=== PATIENT | female | born 1935 | race Caucasian/White ===

== ENCOUNTER → 2022-06-27 12:40 | Outpatient (CLI) | payer MEDICARE, SELFPAY ==
--- NOTE | ~2022-06-27 | US_ITS ---
Renal-Bladder ultrasound Clinical History: Chronic kidney disease Technique: Real-time sonographic imaging of the kidneys and urinary bladder was performed. Findings: The right kidney measures 8.5 cm in length and the left kidney measures 8.9 cm. There is no hydronephrosis or renal calculus identified. Renal cortical echogenicity is within normal limits. No renal mass lesion is identified. The urinary bladder is moderately distended at the time of this exam. No intraluminal echoes are iden tified. No abnormal wall thickening is seen. Impression: Unremarkable ultrasound of the kidneys and urinary bladder. Reviewed, dictated and finalized at location M. CONTROL TECHNICIAN Impression: Unremarkable ultrasound of the kidneys and urinary bladder.
== END ==
PROVIDERS: PCP Physician Assistant Medical; Visit Provider Internal Medicine Nephrology
DX: N18.32 Chronic kidney disease, stage 3b (principal)
CPT/HCPCS: 76775

== ENCOUNTER 2022-11-24 12:35 | Emergency (ER) | payer MEDICARE, SELFPAY ==
[2022-11-24] VITALS (23 sets, daily range): BP systolic 108–150; BP diastolic 51–66; PULSE 62–74; RESP 15–25; TEMP 36.2; O2SAT 95–100
[2022-11-24] MEDS: SODIUM CHLORIDE 0.9% IV 500 ML 999 ML IV CONT (13:48)
[2022-11-24 13:51] LABS: Basophils Percent Auto 0.6 % (0.2-1.2); Eosinophils Absolute Auto 0.2 K/mm3 (0-0.3); Eosinophils Percent Auto 3.5 % (0-4.4); Hematocrit 33.6 % (37.0-47.0); Hemoglobin 10.9 g/dL (12.0-15.0); Immature Granulocyte Absolute 0.01 K/mm3 (0.00-0.031); Immature Granulocyte Percent A 0.2 % (0-0.5); Lymphocytes Absolute Auto 1.27 K/mm3 (0.9-3.2); Mean Corpuscular HGB Conc 32.4 g/dl (32-36); Mean Corpuscular Hemoglobin 29.5 pg (26-34); Mean Corpuscular Volume 91.1 fl (80-100); Mean Platelet Volume 10.3 fl (7.4-10.4); Monocytes Absolute Auto 0.6 K/mm3 (0.1-0.6); Monocytes Percent Auto 12.5 % (2.6-8.5); Neutrophils Absolute Auto 2.8 K/mm3 (1.3-6.7); Neutrophils Percent Auto 57.2 % (45.5-73.1); Platelet Count Result 253 k/mm3 (150-375); Red Blood Count 3.69 M/mm3 (4.2-5.4); White Blood Count 4.9 K/mm3 (4.5-10.0)
[2022-11-24 14:04] LABS: Alanine Aminotransferase 15 U/L (6-35); Albumin Level 3.6 g/dL (3.5-5.1); Alkaline Phosphatase 59 U/L (38-126); Anion Gap 7 mmol/L (8-16); Aspartate Amino Transferase 24 U/L (14-36); Bilirubin,Total 0.4 mg/dL (0.2-1.3); Blood Urea Nitrogen 36 mg/dL (7-17); Calcium 8.7 mg/dL (8.4-10.2); Carbon Dioxide 29 mmol/L (22-30); Chloride 99 mmol/L (98-107); Estimated CRCL calculation 17 ml/min; Estimated Glomerular Filt Rate 28; Glucose 102 mg/dL (65-110); Potassium 3.1 mmol/L (3.4-5.0); Sodium 135 mmol/L (137-145)
--- NOTE | 2022-11-24 14:27 | ED.GENADULT ---
HPI - General Adult General Chief complaint: Urogenital-Female Stated complaint: UTI X2 weeks- continues to be tired Time Seen by Provider: 11/24/22 13:06 History of Present Illness HPI narrative: This is an 87-year-old female with past history of CKD (baseline creatinine 1.3-1.4) dementia and depression, recently treated for urinary tract infection is brought in by family with concern for dehydration. The patient's daughters, who are at bedside note the patient has been generally weak over the past 2 weeks without focal findings. They states she was initially placed on Macrobid and changed to cefdinir. The patient states she has felt somewhat bit fatigued but she has no other complaints at this time. She politely persists that she be allowed to go home. Related Data Home Medications Medication Instructions Recorded Confirmed cholecalciferol (vitamin D3) 50 50 mcg PO DAILY 07/25/22 09/20/22 mcg (2,000 unit) capsule Allergies Allergy/AdvReac Type Severity Reaction Status Date / Time No Known Allergies Allergy Mild Verified 11/24/22 12:36 Review of Systems Review of Systems: CONSTITUTIONAL: Denies fever, chills, or sweats. Mild generalized fatigue CARDIOVASCULAR: Denies chest pain, palpitations, or edema. RESPIRATORY: Denies cough or dyspnea. GASTROINTESTINAL: Denies abdominal pain, nausea, vomiting, or diarrhea. GENITOURINARY: Denies dysuria or hematuria. SKIN: Denies rash or itching. MUSCULOSKELETAL: Denies back pain, joint pain, or myalgia. NEUROLOGIC: Denies headache, numbness, dizziness, or weakness. PSYCHIATRIC: Denies anxiety or depression. [facility] Past Medical History Medical History Anxiety BMI 20.0-20.9, adult Dementia Left wrist fracture Rectal polyp UTI (urinary tract infection) Surgical History Surgical History H/O: hysterectomy History of cholecystectomy Family History Family History Mother Carcinoma of colon Father Family history of coronary artery disease Family history of congestive heart failure Sibling Family history of coronary artery disease AD (Alzheimer's disease) Social History Social History Smoking status: Never smoker Second hand tobacco smoke exposure: No Alcohol intake: never Substance use: never Substance use type: does not use Lack of Transportation: No Lack of Food: Never True Current Housing: I Have Housing Concerned About Future Housing: No Difficulty Paying Gas/Electric Bills: No Difficulty Paying for Meds: No Currently Unemployed: No Education: High School Diploma/GED Difficulty w/ Childcare or Family Care: No Living arrangements: with family Occupation/Education: retired 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 HEAD: Normocephalic, atraumatic. EYES: PERRLA and EOMI. ENT: Nares clear, no rhinorrhea or epistaxis. Mucous membranes moist. Oropharynx without tonsillar hypertrophy exudate or other lesions. CHEST: Clear to auscultation. No respiratory distress. No wheezes rales or rhonchi HEART: Regular rate and rhythm. No murmur heard. Normal peripheral pulses. ABDOMEN: Soft, nontender, nondistended, normal active bowel sounds. EXTREMITIES: Normal range of motion. No edema. SKIN: Warm, dry, no rash. NEURO: No focal deficits. Alert and oriented x3. Strength 5/5 in all extremities, sensation intact bilaterally, cranial nerves II through XII intact, no noted intact PSYCH: Normal mood and affect. Course Course Emergency [facility]: [facility]
[2022-11-24 15:05] LABS: Appearance Urine Turbid (Clear); Bacteria Urine Rare /hpf; Bilirubin Urine Negative (Negative); Calcium Oxalate Crystals Urine Present /hpf; Color Urine Yellow (Yellow); Glucose Urine UA Negative (Negative); Hyaline Casts Urine Present /lpf; Ketones Urine Negative (Negative); Leukocyte Esterase Ur 3+ LEU/UL (Negative); Nitrate Urine Negative (Negative); Protein Urine 2+ mg/dL (Negative); Specific Grav Ur 1.012 (1.001-1.035); Squamous Epithelial Cell Urine Few /hpf (Few); Transitional Epi Cells Urine Present /hpf (None Seen); Urobilinogen Urine 0.2 mg/dL (<2.0); WBC Clumps Urine Present /HPF; WBC Urine >100 /hpf
[2022-11-24 15:33] LABS: Add Urine Microscopic? YES
[2022-11-24] MEDS: POTASSIUM CHLORIDE 20 MEQ PACKET (FOR LIQUID) 40 MEQ PO (15:35)
[2022-11-24] MEDS: LACTATED RINGERS 1,000 ML 999 ML IV CONT (15:35)
== END 2022-11-24 16:45 | disposition home or self-care (01) ==
PROVIDERS: Emergency Provider Preventive Medicine Aerospace Medicine; PCP Family Medicine
DX: N39.0 Urinary tract infection, site not specified (principal); E86.0 Dehydration; N18.9 Chronic kidney disease, unspecified; F03.90 Unspecified dementia, unspecified severity, without behavioral disturbance, psychotic disturbance, mood disturbance, and anxiety; Z90.710 Acquired absence of both cervix and uterus; Z87.19 Personal history of other diseases of the digestive system; Z90.49 Acquired absence of other specified parts of digestive tract; F41.9 Anxiety disorder, unspecified
CPT/HCPCS: 36415; 80053; 81001; 85025; 87086; 96360; 96361; 99283; A9270; J7040; J7120

== ENCOUNTER 2024-02-23 11:19 | Emergency (ER) | payer MEDICARE, SELFPAY ==
--- NOTE | ~2024-02-23 | CT_ITS ---
EXAMINATION: CT facial & cervical spine wo DATE: 02/23/2024 12:07 INDICATION: Status post fall. Facial injury. TECHNIQUE: Computed tomography (CT) of the maxillofacial region and cervical spine was performed with out intravenous contrast. The dose-length product (DLP) was 190.24 mGy-cm. Automated exposure control and iterative reconstruction technique were employed. COMPARISON: None FINDINGS: MAXILLOFACIAL CT: There is complete opacification of the right maxillary sinus. No definitive fracture is seen, althoug h there is gas in the air-fluid level of the right maxillary sinus. Leftward nasal septal deviation. There is mild osteoarthritis of the temporomandibular joints. Possible old nasal fractures. Zygomatic arch is intact. No definite orbital blowout fracture. There is a fracture along the inferior margin of the right maxillary antrum that extends into the mandible. Pterygoid plates intact.. CERVICAL SPINE CT: There is severe cervical spondylosis with degenerative anterolisthesis at C2-3, C3-4, C4-5 and C7-T1. No evidence for perched facet. There is moderate multilevel uncinate and facet hypertrophy. Odontoid process is normal. Craniovertebral junction is normal. No evidence for perched facet. IMPRESSION: 1. Nondisplaced fracture inferior margin of the right maxillary antrum extending into the mandible. N ear complete opacification of the right maxillary sinus, likely hemorrhage. 2: No acute fracture of the cervical spine. Reviewed, dictated and finalized at location B. IMPRESSION: 1. Nondisplaced fracture inferior margin of the right maxillary antrum extendin g into the mandible. Near complete opacification of the right maxillary sinus, likely hemorrhage. 2: No acute fracture of the cervical spine.
--- NOTE | ~2024-02-23 | CT_ITS ---
EXAMINATION: CT brain wo con DATE: 02/23/2024 12:07 INDICATION: Status post fall. Head trauma. TECHNIQUE: Computed tomography (CT) of the head was performed without intravenous contrast. The dose- length product was 605.33 mGy-cm. Automated exposure control and iterative reconstruction technique w ere employed. COMPARISON: CT dated 03/21/2011 FINDINGS: Generalized atrophy. There are scattered mild periventricular and subcortical white matter changes, most likely related to small vessel ischemic disease (microangiopathy). Paranasal sinuses an d mastoids are pneumatized. No depressed skull fractures. No acute infarction, hemorrhage, mass or ma ss effect. IMPRESSION: 1. No acute intracranial abnormality. Reviewed, dictated and finalized at location B.
[2024-02-23 11:20] VITALS: TEMP 36.3
[2024-02-23 11:24] VITALS: BP 179/78; PULSE 85; RESP 16; O2SAT 98
--- NOTE | 2024-02-23 12:21 | ED.FALL ---
HPI - Fall General Chief Complaint: Fall Stated Complaint: fall-facial trauma Time Seen by Provider: 02/23/24 12:06 History of Present Illness HPI Narrative: 88-year-old female presenting to the emergency department for evaluation after having a ground level fall. Patient tripped over a curb causing her to fall forward and strike her face. Patient does have a laceration to her lower lip that is through and through. Patient does have multiple facial contusions Related Data Home Medications Medication Instructions Recorded Confirmed latanoprost 0.005 % eye drops 1 drp EACH EYE DAILY 04/04/23 10/03/23 Allergies Allergy/AdvReac Type Severity Reaction Status Date / Time No Known Allergies Allergy Mild Verified 10/03/23 10:00 Review of Systems Review of Systems: All systems reviewed & are unremarkable except as noted in HPI and below PMFSH Past Medical History Medical History Anxiety BMI 20.0-20.9, adult Dementia Left wrist fracture Psychosis Rectal polyp UTI (urinary tract infection) Surgical History Surgical History H/O: hysterectomy History of cholecystectomy Family History Family History Mother Carcinoma of colon Father Family history of coronary artery disease Family history of congestive heart failure Sibling Family history of coronary artery disease AD (Alzheimer's disease) Sibling Memory changes A-fib Social History Social History Smoking status: Never smoker Second hand tobacco smoke exposure: No Alcohol intake: never Substance use: never Substance use type: does not use Lack of Transportation: No Lack of Food: Never True Current Housing: I Have Housing Concerned About Future Housing: No Difficulty Paying Gas/Electric Bills: No Difficulty Paying for Meds: No Currently Unemployed: No Education: High School Diploma/GED Difficulty w/ Childcare or Family Care: No Living arrangements: assisted living 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 HEAD: normocephalic, atraumatic. EYES: PERRLA/EOMI, conjunctivae clear. NOSE: Normal no drainage EARS:TMS clear with good light reflex. THROAT: Pharynx clear, no exudate. NECK: Supple. No adenopathy, no masses. RESPIRATORY: Airway patent, respirations nonlabored. Clear to auscultation bilaterally, no rales, rhonchi, wheezing. CARDIOVASCULAR: Regular rate and rhythm without murmurs rubs or gallops. ABDOMINAL: Soft, nontender, nondistended, normal bowel sounds MUSCULOSKELETAL: Moves all extremities. Strength/ROM intact, No edema, No calf tenderness. NEURO: Alert. Cranial nerves II through XII intact. Good gait. Good coordination SKIN: Complex laceration of the lower lip, multiple contusions of the face Course Vital Signs Vital signs: Vital Signs Temperature 97.4 F L 02/23/24 11:20 Temperature 97.4 F L 02/23/24 11:20 Pulse Rate 72 02/23/24 17:54 Respiratory Rate 18 02/23/24 17:54 Blood Pressure 168/76 H 02/23/24 17:54 Pulse Oximetry 95 02/23/24 17:54 MDM - Fall MDM Narrative Medical decision making narrative: 88-year-old female presented emergency department for evaluation for a facial laceration. Patient does have a complex through and through laceration of her lower lip along with a mandible fracture. We do not have plastics on board at this facility. Discussed the case with plastics at [place] and patient was accepted for transfer. I discussed the case with the ED physician staff and brandan
[2024-02-23 13:15] VITALS: BP 182/76; PULSE 76; RESP 17; O2SAT 97
--- NOTE | 2024-02-23 13:42 | PC.NURSE ---
Report given to CHUCHO Kiran at [facility]
[2024-02-23 14:18] VITALS: BP 185/74; PULSE 78; RESP 16; O2SAT 97
[2024-02-23 16:56] VITALS: BP 167/67; PULSE 86; RESP 16; O2SAT 96
[2024-02-23 17:54] VITALS: BP 168/76; PULSE 72; RESP 18; O2SAT 95
== END 2024-02-23 17:55 | disposition short-term general hospital (02) ==
PROVIDERS: Emergency Provider Emergency Medicine; PCP Family Medicine
DX: S01.511A Laceration without foreign body of lip, initial encounter (principal); S02.40CA Maxillary fracture, right side, initial encounter for closed fracture; F03.90 Unspecified dementia, unspecified severity, without behavioral disturbance, psychotic disturbance, mood disturbance, and anxiety; F41.9 Anxiety disorder, unspecified; Z86.0100 Personal history of colon polyps, unspecified; Z87.440 Personal history of urinary (tract) infections; Z90.49 Acquired absence of other specified parts of digestive tract; Z90.710 Acquired absence of both cervix and uterus; Z79.899 Other long term (current) drug therapy; W10.1XXA Fall (on)(from) sidewalk curb, initial encounter
CPT/HCPCS: 70450; 70486; 72125; 99285

== ENCOUNTER 2024-05-01 10:29 | Emergency (ER) | payer MEDICARE, SELFPAY ==
[2024-05-01 10:52] VITALS: BP 145/58; PULSE 75; RESP 18; TEMP 36.6; O2SAT 98
--- NOTE | 2024-05-01 11:20 | ED_ITS ---
HPI - Fall General Chief Complaint: Fall Stated Complaint: FALL Time Seen by Provider: 05/01/24 11:10 Source: patient and family Mode of arrival: ambulatory Limitations: no limitations History of Present Illness HPI Narrative: Zahida is a 88-year-old female patient presenting to the clinic today with complaints of fall last night. Daughter states that patient possibly fell last night hitting her head. No known loss of consciousness. Patient has abrasion to the right knee, hematoma to the forehead and periorbital swelling/edema. Patient denies any pain currently. The patient has history of dementia. Hector muhammad states over the last several days she has had increased confusion. Thinks she may have a urinary tract infection. Related Data Home Medications ?Medication ?Instructions ?Recorded ?Confirmed ?Last Taken ?Type latanoprost 0.005 % eye drops 1 drp EACH EYE DAILY 04/04/23 04/02/24 Unknown History Allergies Allergy/AdvReac Type Severity Reaction Status Date / Time No Known Allergies Allergy Mild Verified 04/02/24 10:29 Review of Systems Review of Systems: Pertinent positives per HPI. Patient denies any fever, chills, rash, visual changes, dizziness, cough, shortness of breath, chest pain, palpitations, rufino sea, vomiting, diarrhea, constipation, abdominal pain, or any urinary issues. [facility] Past Medical History Medical History Psychosis BMI 20.0-20.9, adult Left wrist fracture Anxiety UTI (urinary tract infection) Rectal polyp Dementia Surgical History Surgical History History of cholecystectomy H/O: hysterectomy Family History Family History Mother Carcinoma of colon Father Family history of coronary artery disease Family history of congestive heart failure Sibling Family history of coronary artery disease AD (Alzheimer's disease) Sibling Memory changes A-fib Social History Social History Smoking status: Never smoker Second hand tobacco smoke exposure: No Alcohol intake: never Substance use: never Substance use type: does not use Lack of Transportation: No Lack of Food: Never True Current Housing: I Have Housing Concerned About Future Housing: No Difficulty Paying Gas/Electric Bills: No Difficulty Paying for Meds: No Currently Unemployed: No Education: High School Diploma/GED Difficulty w/ Childcare or Family Care: No Living arrangements: assisted living Occupation/Education: retired 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 There is no relevant family history pertinent to the patient complaint. Exam Narrative: General: Well-developed, well nourished, in no apparent distress Head: Normocephalic, mid forehead hematoma with kourtney- orbital swelling and bruising Eyes: Pupils equally round and reactive to light bilaterally, EOM intact, sclera and conjunctive clear, no discharge, lids normal Ears: TMs intact and clear, ear canals clear, no drainage, grossly hearing normal. Nose: Nares patent, no discharge, no inflammation, no sinus tenderness. Mouth: Oropharynx without lesions or masses, good dentition, MMM. Tongue midline, even rise and fall of uvula Neck: Supple, trachea midline, no enlargement of anterior or posterior cervical nodes, no thyroid masses or goiter palpable. Cardio: Regular rate and rhythm, s1 and s2 normal, no murmur appreciated. Resp: Clear to auscultation bilaterally anteriorly and posteriorly, no rhonchi, rales, wheezing or rubs Musculoskeletal: No deformity, non-tender to palpation, grossly normal range of motion, muscle strength strong and equal, peripheral pulse strong, no edema, no cyanosis, normal gait and station Neuro: Alert and oriented x2 with normal speech, no focal deficits, cranial nerves I through XII intact, muscle strength 5 out of 5, sensation intact bilaterally Course Course Emergency Course: Portions of this record may have been created with voice recognition software. Level of Care: Express Care Visit Vital Signs Vital signs: Vital Signs Temperature 36.6 C 05/01/24 10:52 Pulse Rate 75 05/01/24 10:52 Respiratory Rate 18 05/01/24 10:52 Blood Pressure 145/58 H 05/01/24 10:52 Pulse Oximetry 98 05/01/24 10:52 Temperature 36.6 C 12/26/24 10:52 Pulse Rate 75 05/01/24 10:52 Respiratory Rate 18 05/01/24 10:52 Blood Pressure 145/58 H 05/01/24 10:52 Pulse Oximetry 98 05/01/24 10:52 Vital signs reviewed Transfer Transfered to: [facility] [place] Transportation: Other (private car) Transfer rationale: fell and hit head= increase confusion Accepting physician: Dr. Flores Transfer comments: Private car MDM - Fall MDM Narrative Medical decision making narrative: At the time of visit patient is resting comfortably on the exam table. Patient appears to be nontoxic. Plan: Recommend transfer to the ER as patient has a forehead hematoma with bilateral periorbital swelling and bruising. Feels that patient would benefit from head CT/facial bones. Patient daughter also reporting increased confusion. Report called to [facility] and spoke with Arcadio RANKIN- Dr. Flores accepting patient. Differential Diagnosis Differential diagnosis: Likely syncope, concussion with loss of consciousness, concussion without loss of consciousness and other (Hematoma, periorbital swelling and bruising) Discharge Plan Discharge Clinical Impression: Acute confusion, Hematoma Head injury Qualifiers: Encounter type: initial encounter Qualified Code(s): S09.90XA - Unspecified injury of head, initial encounter Periorbital hematoma Qualifiers: Laterality: bilateral Qualified Code(s): H05.233 - Hemorrhage of bilateral orbit Patient Disposition: Acute Care Hospital Condition: Stable Patient Language: Gibralt[place] Prescriptions: No Action latanoprost 0.005 % drops 1 drp EACH EYE DAILY venlafaxine 37.5 mg tablet See Rx Instructions .ROUTE .COMPLEX Qty: 30 11RF Dose Instruction: TAKE ONE TABLET BY MOUTH DAILY Rx Instructions: TAKE ONE TABLET BY MOUTH DAILY donepezil 10 mg tablet See Rx Instructions .ROUTE .COMPLEX Qty: 30 11RF Dose Instruction: TAKE ONE TABLET BY MOUTH DAILY Rx Instructions: TAKE ONE TABLET BY MOUTH DAILY cholecalciferol (vitamin D3) 50 mcg (2,000 unit) capsule See Rx Instructions .ROUTE .COMPLEX Qty: 30 11RF Dose Instruction: TAKE ONE CAPSULE BY MOUTH DAILY Rx Instructions: TAKE ONE CAPSULE BY MOUTH DAILY quetiapine 25 mg tablet See Rx Instructions .ROUTE .COMPLEX Qty: 30 5RF Dose Instruction: TAKE ONE TABLET BY MOUTH DAILY Rx Instructions: TAKE ONE TABLET BY MOUTH DAILY Follow-up/Referrals: Madan Crawford MD [Primary Care Provider] - Time of Disposition: 11:25 Quality NIHSS Nursing Documentation ED NIHSS nursing documentation: reviewed/agree
== END 2024-05-01 11:23 | disposition short-term general hospital (02) ==
PROVIDERS: Emergency Provider Nurse Practitioner Family; PCP Family Medicine
DX: R41.0 Disorientation, unspecified (principal); S09.90XA Unspecified injury of head, initial encounter; S05.12XA Contusion of eyeball and orbital tissues, left eye, initial encounter; S05.11XA Contusion of eyeball and orbital tissues, right eye, initial encounter; W19.XXXA Unspecified fall, initial encounter; F03.90 Unspecified dementia, unspecified severity, without behavioral disturbance, psychotic disturbance, mood disturbance, and anxiety
CPT/HCPCS: 99212; G0463

== ENCOUNTER 2024-05-01 11:43 | Emergency (ER) | payer MEDICARE, SELFPAY ==
--- NOTE | ~2024-05-01 | CT_ITS ---
EXAMINATION: CT brain wo con DATE: 05/01/2024 12:10 INDICATION: Head injury. TECHNIQUE: Computed tomography (CT) of the head was performed without intravenous contrast. The mA wa s adjusted according to patient size. Iterative reconstruction technique was employed. The dose-lengt h product was 681.00 mGy-cm. COMPARISON: Head CT 02/23/2024 FINDINGS: There is a right frontotemporal parietal subdural hematoma that is mixed hyperdense and hyp odense to calvo matter with maximum thickness of 2.4 cm. There is no acute ischemic infarct or abnorma l mass lesion. There is 4 mm leftward midline shift at the foramen of Monro. There is mass effect on right lateral ventricle. The orbits are normal. There is soft tissue swelling of the nose and frontal scalp. There is a fracture of left nasal bone. There is mild mucosal thickening in the paranasal sin uses. The mastoid air cells are normal. IMPRESSION: 1. Right frontotemporoparietal subdural hematoma with maximum thickness of 2.4 cm, likely acute or zaragoza bacute. I called this result to Nata More. 2. Fracture of the left nasal bone. Reviewed, dictated and finalized at location A. EN DOOR MAKER IMPRESSION: 1. Right frontotemporoparietal subdural hematoma with maximum thickness of 2.4 cm, likely acute or subacute. I called this result to Nata More. 2. Fracture of the left nasal bone.
--- NOTE | ~2024-05-01 | CT_ITS ---
EXAMINATION: CT facial & cervical spine wo DATE: 05/01/2024 12:14 INDICATION: Head injury. TECHNIQUE: Computed tomography (CT) of the maxillofacial region and cervical spine was performed with out intravenous contrast. Automated exposure control and iterative reconstruction technique were empl oyed. The dose-length product was 200.96 mGy-cm. COMPARISON: CT 02/23/2024 FINDINGS: MAXILLOFACIAL CT: There is soft tissue swelling involving the nose and frontal scalp. The orbits are normal. There is m ild mucosal thickening in the basal sinuses. There are fractures of the nasal bones. There is leftwar d deviation of the nasal septum. CERVICAL SPINE CT: There is mild scarring at the lung apices. There is mild kyphosis of cervical spine. There is 2 mm an terolisthesis of C4 on C5 and C7 on T1. Vertebral body heights are normal. There is mildly decreased disc height at C4-C5 and moderately decreased disc height at C5-C6 and C6-C7. The following disc leve ls are specifically discussed: C2-C3: There is no uncovertebral joint osteoarthritis. There is severe bilateral facet joint osteoart hritis. There is mild bilateral neural foraminal stenosis. There is no central canal stenosis. C3-C4: There is mild right and severe left uncovertebral joint osteoarthritis. There is severe bilate ral facet joint osteoarthritis. There is moderate bilateral neural foraminal stenosis. There is mild central canal stenosis. C4-C5: There is ankylosis of the uncovertebral joints with mild hypertrophy. There is ankylosis of th e facet joints with moderate right and severe left hypertrophy. There is mild bilateral neural forami nal stenosis. There is no central canal stenosis. C5-C6: There is severe bilateral uncovertebral joint osteoarthritis. There is severe bilateral facet joint osteoarthritis. There is moderate bilateral neural foraminal stenosis. There is mild central ca nal stenosis. C6-C7: There is severe bilateral uncovertebral joint osteoarthritis. There is severe bilateral facet joint osteoarthritis. There is mild bilateral neural foraminal stenosis. There is mild central canal stenosis. C7-T1: There is no uncovertebral joint osteoarthritis. There is severe bilateral facet joint osteoart hritis. There is mild bilateral neural foraminal stenosis. There is no central canal stenosis. IMPRESSION: 1. Subacute fractures of the nasal bones, stable from 02/23/2024. 2. Severe cervical spondylosis. Reviewed, dictated and finalized at location A. L WORKER HELPER
[2024-05-01 11:56] VITALS: BP 155/59; PULSE 76; RESP 18; TEMP 36.6; O2SAT 97
--- NOTE | 2024-05-01 11:57 | ECG_ITS ---
Test Date: 2024-05-01 12:56:26 Measurements Intervals [place] Rate: 70 P: 59 MA: 167 QRS: 59 QRSD: 93 T: 18 QT: 390 QTc: 422 Interpretive Statements SINUS RHYTHM NONSPECIFIC ST AND T-WAVE ABNORMALITY ABNORMAL ECG No previous ECG available for comparison Electronically Signed On 05-02-2024 16:49:56 QA INTERN by Peterson Chand M.D.
--- NOTE | 2024-05-01 11:57 | ED.FALL ---
HPI - Fall General Chief Complaint: Fall Stated Complaint: fall last night, [place] Time Seen by Provider: 05/01/24 11:57 Focused HPI: This is an 88-year-old female that presents to the emergency department after a fall at her facility last night. Paramedics came, but she refused to be transported. Patient did hit her head. Unsure of loss of consciousness. She is not on blood thinners. Bruising noted throughout the face. Also noted to have bruising to the right 3rd finger as well as an injury to the right knee. Her family member reports she has been a little more confused lately and are concerned she may have a UTI. GENERAL: Elderly, well-nourished, and in no acute distress. HEAD: Normocephalic. Bruising to the nose, eyelids CHEST: Clear to auscultation. ?No respiratory distress. HEART: Regular rate and rhythm.? NEURO: ?Alert and oriented x3. Normal gait Patient screened in triage and initial orders placed.? ?Additional care and disposition to be based upon?diagnostic testing and treatment. Related Data Home Medications ?Medication ?Instructions ?Recorded ?Confirmed ?Last Taken ?Type latanoprost 0.005 % eye drops 1 drp EACH EYE DAILY 04/04/23 04/02/24 Unknown History Allergies Allergy/AdvReac Type Severity Reaction Status Date / Time No Known Allergies Allergy Mild Verified 05/01/24 11:58 [facility] Past Medical History Medical History Psychosis BMI 20.0-20.9, adult Left wrist fracture Anxiety UTI (urinary tract infection) Rectal polyp Dementia Surgical History Surgical History History of cholecystectomy H/O: hysterectomy Family History Family History Mother Carcinoma of colon Father Family history of coronary artery disease Family history of congestive heart failure Sibling Family history of coronary artery disease AD (Alzheimer's disease) Sibling Memory changes A-fib Social History Social History Smoking status: Never smoker Second hand tobacco smoke exposure: No Alcohol intake: never Substance use: never Substance use type: does not use Lack of Transportation: No Lack of Food: Never True Current Housing: I Have Housing Concerned About Future Housing: No Difficulty Paying Gas/Electric Bills: No Difficulty Paying for Meds: No Currently Unemployed: No Education: High School Diploma/GED Difficulty w/ Childcare or Family Care: No Living arrangements: assisted living Occupation/Education: retired 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 Gender identity (if verbalized by the patient): Female Spiritual care concerns: No Agree to blood products: Yes Discharge Plan Discharge Patient Language: Tongan Prescriptions: No Action latanoprost 0.005 % drops 1 drp EACH EYE DAILY venlafaxine 37.5 mg tablet See Rx Instructions .ROUTE .COMPLEX Qty: 30 11RF Dose Instruction: TAKE ONE TABLET BY MOUTH DAILY Rx Instructions: TAKE ONE TABLET BY MOUTH DAILY donepezil 10 mg tablet See Rx Instructions .ROUTE .COMPLEX Qty: 30 11RF Dose Instruction: TAKE ONE TABLET BY MOUTH DAILY Rx Instructions: TAKE ONE TABLET BY MOUTH DAILY cholecalciferol (vitamin D3) 50 mcg (2,000 unit) capsule See Rx Instructions .ROUTE .COMPLEX Qty: 30 11RF Dose Instruction: TAKE ONE CAPSULE BY MOUTH DAILY Rx Instructions: TAKE ONE CAPSULE BY MOUTH DAILY quetiapine 25 mg tablet See Rx Instructions .ROUTE .COMPLEX Qty: 30 5RF Dose Instruction: TAKE ONE TABLET BY MOUTH DAILY Rx Instructions: TAKE ONE TABLET BY MOUTH DAILY Follow-up/Referrals: Madan Crawford MD [Primary Care Provider] -
--- NOTE | 2024-05-01 12:15 | ED_ITS ---
HPI - Fall General Chief Complaint: Fall Stated Complaint: fall last night, [place] Time Seen by Provider: 05/01/24 11:57 Source: patient and family Mode of arrival: ambulatory History of Present Illness HPI Narrative: 88 years old white female came to the ED by private car with her daughter telling me that she had a fall 6 days ago. Her daughter is telling me that the fall was last night, complaining of facial pain and facial bruises. Patient denies any fever, chills, nausea, vomiting, diarrhea, constipation, chest pain, shortness of breath, back pain or any other injuries. Patient is awake, alert and oriented x4. Patient take baby aspirin as needed for headache otherwise does not take any medicine at home. She does smoke or drink or use drugs, patient believes that she is healthy otherwise. Patient is not on anti-platelet or anticoagulant medication complaint: fall Related Data Home Medications ?Medication ?Instructions ?Recorded ?Confirmed ?Last Taken ?Type latanoprost 0.005 % eye drops 1 drp EACH EYE DAILY 04/04/23 04/02/24 Unknown History Allergies Allergy/AdvReac Type Severity Reaction Status Date / Time No Known Allergies Allergy Mild Verified 05/01/24 11:58 Review of Systems Review of Systems: All systems reviewed & are unremarkable except as noted in HPI and below PMFSH Past Medical History Medical History Psychosis BMI 20.0-20.9, adult Left wrist fracture Anxiety UTI (urinary tract infection) Rectal polyp Dementia Surgical History Surgical History History of cholecystectomy H/O: hysterectomy Family History Family History Mother Carcinoma of colon Father Family history of coronary artery disease Family history of congestive heart failure Sibling Family history of coronary artery disease AD (Alzheimer's disease) Sibling Memory changes A-fib Social History Social History Smoking status: Never smoker Second hand tobacco smoke exposure: No Alcohol intake: never Substance use: never Substance use type: does not use Lack of Transportation: No Lack of Food: Never True Current Housing: I Have Housing Concerned About Future Housing: No Difficulty Paying Gas/Electric Bills: No Difficulty Paying for Meds: No Currently Unemployed: No Education: High School Diploma/GED Difficulty w/ Childcare or Family Care: No Living arrangements: assisted living Occupation/Education: retired 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 Gender identity (if verbalized by the patient): Female Spiritual care concerns: No Agree to blood products: Yes Exam Narrative: General appearance: Well-developed, well-nourished Skin: Normal colorFacial bruises, swelling, nasal laceration Head: Normocephalic, nontraumatic Eyes: Clear conjunctiva ENT: Oropharynx normal, ears normal, nose normal Neck: Supple, nontender Chest and respiratory: Airway patent, no respiratory distress, no accessory muscle use Heart: Regular rate/rhythm Abdomen: Soft, nontender, no organomegaly, quiet bowel sounds Vascular: Normal peripheral pulses, normal capillary refill. Musculoskeletal: Normal range of motion, nontender back Neurologic: Alert and oriented ?3, [employer]ITER is normal as tested, no gross motor deficit Course Consultations Consultation #1: Dr. Israel, emergency room at [facility] who accepted patient transfer Date: 05/01/24 Time: 12:41 Vital Signs Vital signs: Vital Signs Temperature 36.6 C 05/01/24 11:56 Pulse Rate 76 05/01/24 11:56 Respiratory Rate 18 05/01/24 11:56 Blood Pressure 155/59 H 05/01/24 11:56 Pulse Oximetry 97 05/01/24 11:56 Oxygen Delivery Room Air 05/01/24 11:56 Temperature 36.6 C 05/01/24 11:56 Pulse Rate 71 05/01/24 12:34 Respiratory Rate 20 05/01/24 12:34 Blood Pressure 160/57 H 05/01/24 12:34 Pulse Oximetry 100 05/01/24 12:34 Oxygen Delivery Room Air 05/01/24 11:56 MDM - Fall MDM Narrative Medical decision making narrative: patient had a fall probably yesterday or 5-6 days ago. Vital signs are stable Physical examination showing quite a bit of bruises and contusion of the face otherwise insignificant Differential diagnosis facial bone fracture nasal bone fracture, intracranial bleed CT head without contrast showed subdural hematoma[facility] Differential diagnosis: Likely concussion without loss of consciousness Imaging Data Radiologist's impression: Impressions Head CT 05/01/24 12:14 IMPRESSION: 1. Right frontotemporoparietal subdural hematoma with maximum thickness of 2.4 cm, likely acute or subacute. I called this result to Nata More. 2. Fracture of the left nasal bone. Critical Care Time Critical Care Time Critical Care Time: No Discharge Plan Discharge Clinical Impression: Acute subdural hematoma, Closed fracture nasal bone Patient Disposition: Acute Care Hospital Condition: Stable Additional Instructions: transferred to [facility] Patient Language: Citizen Of [place] Prescriptions: No Action latanoprost 0.005 % drops 1 drp EACH EYE DAILY venlafaxine 37.5 mg tablet See Rx Instructions .ROUTE .COMPLEX Qty: 30 11RF Dose Instruction: TAKE ONE TABLET BY MOUTH DAILY Rx Instructions: TAKE ONE TABLET BY MOUTH DAILY donepezil 10 mg tablet See Rx Instructions .ROUTE .COMPLEX Qty: 30 11RF Dose Instruction: TAKE ONE TABLET BY MOUTH DAILY Rx Instructions: TAKE ONE TABLET BY MOUTH DAILY cholecalciferol (vitamin D3) 50 mcg (2,000 unit) capsule See Rx Instructions .ROUTE .COMPLEX Qty: 30 11RF Dose Instruction: TAKE ONE CAPSULE BY MOUTH DAILY Rx Instructions: TAKE ONE CAPSULE BY MOUTH DAILY quetiapine 25 mg tablet See Rx Instructions .ROUTE .COMPLEX Qty: 30 5RF Dose Instruction: TAKE ONE TABLET BY MOUTH DAILY Rx Instructions: TAKE ONE TABLET BY MOUTH DAILY Follow-up/Referrals: Madan Crawford MD [Primary Care Provider] -
--- NOTE | 2024-05-01 12:27 | PC.NURSE ---
Pt. is A&Ox3, disoriented to situation. Daughter at bedside.
[2024-05-01 12:34] VITALS: BP 160/57; PULSE 71; RESP 20; O2SAT 100
[2024-05-01 12:54] LABS: Basophils Percent Auto 0.6 % (0.2-1.2); Eosinophils Absolute Auto 0.2 K/mm3 (0-0.3); Eosinophils Percent Auto 2.6 % (0-4.4); Hematocrit 36.9 % (37.0-47.0); Hemoglobin 12.1 g/dL (12.0-15.0); Immature Granulocyte Absolute 0.03 K/mm3 (0.00-0.031); Immature Granulocyte Percent A 0.5 % (0-0.5); Lymphocytes Absolute Auto 1.14 K/mm3 (0.9-3.2); Lymphocytes Percent Auto 17.5 % (18.3-44.2); Mean Corpuscular HGB Conc 32.8 g/dl (32-36); Mean Corpuscular Hemoglobin 29.2 pg (26-34); Mean Corpuscular Volume 88.9 fl (80-100); Mean Platelet Volume 11.4 fl (7.4-10.4); Monocytes Absolute Auto 0.6 K/mm3 (0.1-0.6); Monocytes Percent Auto 9.8 % (2.6-8.5); Neutrophils Absolute Auto 4.5 K/mm3 (1.3-6.7); Platelet Count Result 227 k/mm3 (150-375); Red Blood Count 4.15 M/mm3 (4.2-5.4); Red Cell Distribution Width 12.5 % (11.5-14.5); White Blood Count 6.5 K/mm3 (4.5-10.0)
--- NOTE | 2024-05-01 12:55 | PC.NURSE ---
Report called to CHUCHO Hernandes at [facility]. All questions answered. Pt. to transport via [facility] ambulance, ETA [id number].
[2024-05-01 13:03] LABS: Alanine Aminotransferase 14 U/L (6-35); Albumin Level 4.2 g/dL (3.5-5.1); Alkaline Phosphatase 95 U/L (38-126); Anion Gap 3 mmol/L (4-12); Aspartate Amino Transferase 34 U/L (14-36); Bilirubin,Total 0.9 mg/dL (0.2-1.3); Blood Urea Nitrogen 17 mg/dL (7-17); Calcium 9.5 mg/dL (8.4-10.2); Carbon Dioxide 28 mmol/L (22-30); Chloride 105 mmol/L (98-107); Estimated CRCL calculation 24 ml/min; Estimated Glomerular Filt Rate 39; Glucose 93 mg/dL (65-110); Potassium 4.1 mmol/L (3.4-5.0); Sodium 136 mmol/L (137-145)
[2024-05-01 13:10] LABS: Add Urine Microscopic? NO; Appearance Urine Clear (Clear); Bilirubin Urine Negative (Negative); Blood Urine Negative (Negative); Color Urine Yellow (Yellow); Glucose Urine UA Negative (Negative); Ketones Urine Negative (Negative); Leukocyte Esterase Ur Negative LEU/UL (Negative); Nitrate Urine Negative (Negative); Protein Urine Negative (Negative); Urobilinogen Urine 0.2 mg/dL (<2.0); pH Urine 5.5 (5.0-9.0)
[2024-05-01 13:35] VITALS: BP 145/71; PULSE 75; RESP 14; O2SAT 98
== END 2024-05-01 13:38 | disposition short-term general hospital (02) ==
PROVIDERS: Physician Assistant; Emergency Provider Emergency Medicine; PCP Family Medicine
DX: S06.5XAA Traumatic subdural hemorrhage with loss of consciousness status unknown, initial encounter (principal); S02.2XXA Fracture of nasal bones, initial encounter for closed fracture; F41.9 Anxiety disorder, unspecified; F03.90 Unspecified dementia, unspecified severity, without behavioral disturbance, psychotic disturbance, mood disturbance, and anxiety; R94.31 Abnormal electrocardiogram [ECG] [EKG]; W19.XXXA Unspecified fall, initial encounter
CPT/HCPCS: 36415; 70450; 70486; 72125; 80053; 81003; 85025; 93005; 99285